=== PATIENT | male | born 1940 | race Caucasian/White ===

== ENCOUNTER 2017-06-13 15:00 | Emergency (ER) | payer OTHER, MEDICARE ==
[~2017-06-13] VITALS: Ht 5954.8 cm; Wt 67.1 kg
[~2017-06-13 15:00] MED LIST: DEC4T PO
[2017-06-13] MEDS ORDERED: normal saline 1000ML IV soln IVB ONE (15:20)
[2017-06-13 15:44] LABS: BASOPHILS % (AUTO) 0.4 % (0-1); EOSINOPHILS # (AUTO) 0.2 X10'3 (0-0.9); EOSINOPHILS % (AUTO) 1.3 % (0-6); HEMATOCRIT 44.1 % (42.0-52.0); LYMPHOCYTES % (AUTO) 16.9 % (21-51); MEAN CORPUSCULAR HEMOGLOBIN 33.1 PG (27.0-31.0); MEAN CORPUSCULAR HGB CONC 34.1 % (33.0-36.5); MEAN CORPUSCULAR VOLUME 97.2 FL (78-98); MEAN PLATELET VOLUME 7.7 FL (7.4-10.4); MONOCYTES # (AUTO) 0.6 X10'3 (0-0.9); MONOCYTES % (AUTO) 4.8 % (2-12); NEUTROPHILS # (AUTO) 8.9 X10'3 (1.8-7.7); NEUTROPHILS % (AUTO) 76.6 % (42-75); PLATELET COUNT 322 X10'3 (140-440); RED BLOOD COUNT 4.54 X10'6 (4.70-6.10); RED CELL DISTRIBUTION WIDTH 12.6 % (11.5-14.5); WHITE BLOOD COUNT 11.6 X10'3 (4.5-11.0)
[2017-06-13 15:55] LABS: CLARITY,URINE CLEAR (Clear); GLUCOSE, URINE NEGATIVE (Neg); KETONES,URINE NEGATIVE (Neg); LEUKOCYTE ESTERASE ,URINE NEGATIVE (Neg); NITRITES, URINE NEGATIVE (Neg); OCCULT BLOOD,URINE TRACE-INTACT (Neg); PH,URINE 5.5 (4.8-8.0); PROTEIN,URINE NEGATIVE (Neg)
[2017-06-13 15:56] LABS: ALANINE AMINOTRANSFERASE 18 U/L (12-78); ALBUMIN 3.7 G/DL (3.4-5.0); ALBUMIN/GLOBULIN RATIO 0.9 (1.1-1.5); ALKALINE PHOSPHATASE 77 IU/L (46-116); ANION GAP 11 (8-16); ASPARTATE AMINO TRANSFERASE 14 U/L (10-37); BILIRUBIN,TOTAL 0.9 MG/DL (0.1-1.0); BLOOD UREA NITROGEN 17 MG/DL (7-18); BUN/CREATININE RATIO 17.2 (5.4-32.0); CALCIUM 9.4 MG/DL (8.5-10.1); CHLORIDE 102 MMOL/L (99-107); CREATININE 0.99 MG/DL (0.60-1.10); GLUCOSE 134 MG/DL (70-104); LIPASE 66 U/L (73-393); SODIUM 140 MMOL/L (135-145); TOTAL CARBON DIOXIDE 26.8 MMOL/L (24-32); eGFR 73 ML/MIN
[2017-06-13 15:56] LABS: COLOR,URINE DARK YELLOW (Yellow); UA COLLECTION TYPE CLN CATCH MIDSTREAM
[2017-06-13 16:02] LABS: BACTERIA,URINE FEW /HPF (Neg); MUCUS STRANDS MODERATE /LPF (Neg); RBC,URINE 0-2 /HPF (0-2); SQUAMOUS EPITHELIAL CELL,UR FEW /LPF (FEW); WBC,URINE 0-4 /HPF (0-4)
[2017-06-13 16:03] LABS: CAL OXALATE CRYSTALS 1+ /HPF (NEGATIVE); HYALINE CASTS 0-3 /LPF (NEGATIVE)
[2017-06-13] MEDS ORDERED: fentaNYL/PF 50MCG/1 ML 2ML syringe IV ONE (16:30)
[2017-06-13] MEDS ORDERED: ONDA8TAB9 PO (17:15)
[2017-06-13 17:28] VITALS: BP 142/92
== END 2017-06-13 17:31 | disposition home or self-care (01) ==
LOC: ER 15:00
DX: C76.2 Malignant neoplasm of abdomen (principal); C79.89 Secondary malignant neoplasm of other specified sites; Z85.038 Personal history of other malignant neoplasm of large intestine; Z85.841 Personal history of malignant neoplasm of brain
CPT/HCPCS: 36415; 74176; 80053; 81001; 83690; 85025; 96361; 96374; 99285; J3010